=== PATIENT | male | born 1990 | race African-American/Black ===

== ENCOUNTER → 2021-02-10 | Outpatient (CLI) | payer OTHER ==
--- NOTE | 2021-03-01 23:44 | SLEEP ---
[address] [address] SLEEP STUDY REPORT Name: ZARIA MARIE Room: [facility]#: [id number] Admission: 02/10/21 Attend Phys: Az Walker MD Discharge: Date of : 89 Report #: [id number] THIS REPORT FOR: cc: Scottie Wolf Vincent R. DO Pervez, Adeel MD ~ DATE OF STUDY: 02/11/2021 HOME SLEEP STUDY INTERPRETATION: Total duration of the study is 413 minutes. During this time duration, we recorded multiple sleep related respiratory events. These included 27 obstructive apneas, 1 central apnea, 2 mixed apneas, and 17 hypopneas. Overall apnea-hypopnea index is 6.8. Body position data indicates the patient is lying on the right side throughout the sleep study. There are multiple desaturations also recorded. Overall, the patient spent 2.7 minutes below an O2 saturation of 88%, 5.9 minutes were spent below an O2 saturation of 90%. Mean heart rate was 62. IMPRESSION: Obstructive sleep apnea with an apnea-hypopnea index of 6.8 with mild nocturnal hypoxemia as described above. RECOMMENDATIONS: Options include the use of a CPAP auto titrated device or proceeding to a repeat sleep study for positive airway pressure titration. Clinical correlation is advised. This entire sleep study was reviewed by board certified sleep physician. <ELECTRONICALLY SIGNED> By: Az Walker MD 03/01/21 [id number] filiberto Willis
== END ==
LOC: M.PUL 09:00 → M.SLEEPLAB 09:16
PROVIDERS: ATTEND Internal Medicine Critical Care Medicine
DX: G47.33 Obstructive sleep apnea (adult) (pediatric) (principal); R40.0 Somnolence; R06.83 Snoring; E66.9 Obesity, unspecified